=== PATIENT | female | born 1960 | race Caucasian/White ===

== ENCOUNTER 2021-06-29 11:30 | Emergency (ER) | payer OTHER ==
[2021-06-29 12:09] VITALS: BP 128/80; PULSE 100; RESP 24; TEMP 98.7
[2021-06-29] MEDS ORDERED: SODIUM CHLORIDE 0.9% 50 ML IVPB ONE (13:45)
[2021-06-29] MEDS ORDERED: CASIRIVIMAB (REGN10933) (EUA) 600 MG, IMDEVIMAB (REGN10987) (EUA) 600 MG in SODIUM CHLO... IVPB ONE (13:45)
--- NOTE | 2021-06-29 14:22 | ED ---
URI HPI - General Chief Complaint: Upper Respiratory Infection Stated Complaint: covid+/antibodies Time Seen by Provider: 06/29/21 12:54 Source: patient, RN notes reviewed Mode of arrival: ambulatory Limitations: no limitations - History of Present Illness Initial Comments: Patient is a 61-year-old female with history of thyroid disease, presenting to [facility] emergency department requesting monoclonal antibodies. Patient states she tested positive this morning with a home test for Covid. She's been having symptoms since yesterday. She states her is at home sick with covid as well. She was given a prescription from a "friend" for ivermectin. She has been taking this medication for one day. Patient denies any chest pain or shortness of breath, no fevers or chills, no abdominal pain. She's been having some intermittent nausea and some mild diarrhea. Patient has no further complaints at this time. Her vital signs are stable upon arrival. - Related Data Home Medications Medication Instructions Recorded Confirmed Calcium Citrate/Vitamin D3 1 tab PO BID 06/29/21 06/29/21 [Citracal + D Maximum Caplet] Levothyroxine Sodium 88 mcg PO DAILY 06/29/21 06/29/21 Potassium Chloride ER [K-Dur 10] 10 meq PO BID 06/29/21 06/29/21 aMILoride/HYDROCHLOROTHIAZIDE 1 tab PO DAILY 06/29/21 06/29/21 [aMILoride/HYDROCHLOROTHIAZIDE 5-50 mg] calcitrioL [Rocaltrol] 0.25 mcg PO BID 06/29/21 06/29/21 Allergies Allergy/AdvReac Type Severity Reaction Status Date / Time No Known Allergies Allergy Verified 06/29/21 14:14 Review of Systems ROS Statement: Those systems with pertinent positive or pertinent negative responses have been documented in the HPI. ROS Other: All systems not noted in ROS Statement are negative. Past Medical History Past Medical History: No Reported History History of Any Multi-Drug Resistant Organisms: None Reported Additional Past Surgical History / Comment(s): Thyroid Past Psychological History: No Psychological Hx Reported Smoking Status: Never smoker Past Alcohol Use History: None Reported Past Drug Use History: None Reported General Exam - General Exam Comments Initial Comments: GENERAL: Patient is well-developed and well-nourished. Patient is nontoxic and in no acute distress. HEAD: Atraumatic, normocephalic. EYES: Pupils equal round and reactive to light, extraocular movements intact, sclera anicteric, conjunctiva are normal. Eyelids were unremarkable. ENT: Moist mucous membranes. NECK: Normal range of motion, supple without lymphadenopathy or JVD. LUNGS: Unlabored respirations. Breath sounds clear to auscultation bilaterally and equal. No wheezes rales or rhonchi. HEART: Regular rate and rhythm without murmurs, rubs or gallops. MUSCULOSKELETAL: Normal extremities with adequate strength and normal range of motion, no pitting or edema. No clubbing or cyanosis. NEUROLOGICAL: Patient is alert and oriented x 3. SKIN: Warm, Dry, normal turgor, no rashes or lesions noted. Limitations: no limitations Course Vital Signs 06/29/21 12:06 Temperature 98.7 F Pulse Rate 100 Respiratory 24 Rate Blood Pressure 128/80 O2 Sat by Pulse 98 Oximetry Medical Decision Making - Medical Decision Making Patient is a 61-year-old female history of thyroid disease, presenting requesting monoclonal antibodies. She tested positive today for Covid, symptoms began yesterday. Her vital signs are stable. She did receive monoclonal antibodies without adverse side effects. She stable for discharge. I recommended fine up with her primary care. Tylenol Motrin for any symptoms. She is agreeable to this and is stable for discharge. - Lab Data Lab Results 06/29/21 Range/Units 12:11 Coronavirus (PCR) Detected A (Not Detectd) Disposition Clinical Impression: COVID-19 Disposition: HOME SELF-CARE Condition: Stable Instructions (If sedation given, give patient instructions): Coronavirus Disease 2019 (COVID-19) Additional Instructions: Please return to the Emergency Department if symptoms worsen or any other concerns. Recommend Tylenol and/or Motrin for any body aches or fevers. Please follow up with your primary care. Is patient prescribed a controlled substance at d/c from ED?: No Referrals: Nonstaff,Physician [Primary Care Provider] - 1-2 days Time of Disposition: 14:22
== END 2021-06-29 16:35 | disposition home or self-care (01) ==
LOC: EC 11:30
DX: U07.1 COVID-19 (principal)
CPT/HCPCS: 99284; 87635; Q0243